=== PATIENT | male | born 1995 | race Caucasian/White ===

== ENCOUNTER 2022-11-11 01:14 | Emergency (ER) | payer SELFPAY ==
[~2022-11-11] VITALS: Ht 172.7 cm; Wt 73.0 kg
[2022-11-11 01:16] VITALS: BP 148/99
== END 2022-11-11 09:40 | disposition left against medical advice (07) ==
LOC: ER 01:14
DX: Z53.21 Procedure and treatment not carried out due to patient leaving prior to being seen by health care provider (principal)
CPT/HCPCS: 99283

== ENCOUNTER 2023-03-17 00:22 | Emergency (ER) | payer SELFPAY ==
[~2023-03-17] VITALS: Ht 172.7 cm; Wt 73.0 kg
[2023-03-17 00:24] VITALS: BP 137/89; PULSE 94; RESP 18; TEMP 98.8; O2SAT 98
== END 2023-03-17 01:25 | disposition left against medical advice (07) ==
LOC: ER 00:38
DX: R10.9 Unspecified abdominal pain (principal); Z53.21 Procedure and treatment not carried out due to patient leaving prior to being seen by health care provider
CPT/HCPCS: 99281

== ENCOUNTER 2024-05-22 22:28 | Emergency (ER) | payer SELFPAY ==
[~2024-05-22] VITALS: Ht 167.6 cm; Wt 75.0 kg
[2024-05-22 22:55] VITALS: BP 131/82; TEMP 97.9; O2SAT 97
[2024-05-22 23:01] VITALS: PULSE 119; RESP 20; O2SAT 99
== END 2024-05-23 01:43 | disposition left against medical advice (07) ==
LOC: ER 22:38
DX: F41.9 Anxiety disorder, unspecified (principal); Z53.21 Procedure and treatment not carried out due to patient leaving prior to being seen by health care provider